=== PATIENT | female | born 1945 | race African-American/Black ===

== ENCOUNTER 2021-10-09 04:17 | Emergency (ER) | payer OTHER, MEDICAID ==
[~2021-10-09] VITALS: Ht 167.6 cm; Wt 63.5 kg
[~2021-10-09 04:17] MED LIST: ALEN70SO4 PO; LISI1TAB11 PO; ZOLP10TA6 PO
[2021-10-09] MEDS ORDERED: MORPHINE SULFATE 4 MG/ML CPJ (NOT FOR IM USE) IV STA ×2 (05:21→09:24)
[2021-10-09] MEDS ORDERED: ONDANSETRON HCL 4MG/2ML INJ IV STA ×2 (05:21→09:24)
[2021-10-09] MEDS ORDERED: SODIUM CHLORIDE 0.9% 1,000 ML IV ONE (05:30)
[2021-10-09 06:22] LABS: BASOPHILS % 0.9 % (0.0-2.0); EOSINOPHILS % 2.4 % (0.0-5.0); HEMATOCRIT. 35.2 % (36.0-48.0); HEMOGLOBIN. 12.2 g/dL (12.0-16.0); LYMPHOCYTES % 21.1 % (20.0-50.0); MEAN CORPUSCULAR HEMOGLOBIN 31.2 pg (28.0-32.0); MEAN CORPUSCULAR VOLUME 90.5 fL (81.0-99.0); MEAN PLATELET VOLUME 6.8 fl (7.4-10.4); NEUTROPHILS % 66.6 % (40.0-76.0); PLATELET 831 x1000/uL (130-400); RED BLOOD CELL COUNT 3.89 mill/uL (4.2-5.4); RED CELL DISTRIBUTION WIDTH 14.2 % (11.6-14.6)
[2021-10-09 06:43] LABS: CHLORIDE 101 mEq/L (98-107)
[2021-10-09 07:25] LABS: CLARITY URINE CLOUDY (CLEAR); COLOR URINE DARK YELLOW (YELLOW); KETONES URINE NEGATIVE (NEGATIVE); LEUKOCYTE ESTERASE URINE 2+ (NEGATIVE); NITRITE URINE NEGATIVE (NEGATIVE); OCCULT BLOOD URINE NEGATIVE (NEGATIVE); PH URINE 6.5 (4.5-8.0); PROTEIN URINE NEGATIVE (NEGATIVE); SPECIFIC GRAVITY URINE 1.021 (1.005-1.030)
[2021-10-09] MEDS ORDERED: CEFTRIAXONE 1 G PREMIX 50 ML IV ONE (09:45)
[2021-10-09] MEDS ORDERED: HYDROCODONE/ACETAMINOPHEN 5/325MG TABLET PO ONE (10:45)
[2021-10-09] MEDS ORDERED: LEVO250T43 MT (12:52)
[2021-10-09] MEDS ORDERED: IOHEXOL-350 100 ML BOTTLE ONE (12:55)
[2021-10-09 15:39] VITALS: BP 152/94
== END 2021-10-09 15:46 | disposition home or self-care (01) ==
LOC: ER 04:29
DX: R10.9 Unspecified abdominal pain (principal); I10 Essential (primary) hypertension; Z85.6 Personal history of leukemia; Z90.710 Acquired absence of both cervix and uterus; Z88.0 Allergy status to penicillin
CPT/HCPCS: 36415; 71045; 75635; 80053; 81003; 85025; 93005; 93970; 96361; 96365; 96366; 96375; 96376; 99285; J0696; J2270; J2405; J7030; Q9967